=== PATIENT | female | born 1975 | race Caucasian/White ===

== ENCOUNTER 2016-08-17 15:08 | Outpatient (CLI) | payer OTHER | END 2016-08-17 15:09 | disposition home or self-care (01) | DX: G47.33 Obstructive sleep apnea (adult) (pediatric) (principal) ==

== ENCOUNTER 2016-09-08 07:47 | Outpatient (CLI) | payer OTHER | END 2016-09-08 07:48 | disposition home or self-care (01) | DX: Z00.00 Encounter for general adult medical examination without abnormal findings (principal); E78.5 Hyperlipidemia, unspecified; E66.01 Morbid (severe) obesity due to excess calories ==

== ENCOUNTER 2017-06-29 11:45 | Outpatient (CLI) | payer OTHER | END 2017-06-29 11:46 | disposition home or self-care (01) | LOC: LAB.WCP 11:45 | PROVIDERS: ATTEND Family Medicine | DX: E66.01 Morbid (severe) obesity due to excess calories (principal); N92.0 Excessive and frequent menstruation with regular cycle; R20.0 Anesthesia of skin | CPT/HCPCS: 36415; 82306; 82670; 83001; 83735; 84403 ==

== ENCOUNTER 2018-05-21 10:44 | Day surgery (SDC) | payer OTHER ==
[2018-05-21] MEDS ORDERED: ceFAZolin 2 GM/50 ML 2 GM/50 ML BAG IV ONE (10:52)
[2018-05-21] MEDS ORDERED: LACTATED RINGERS 1,000 ML IV ONE (11:13)
--- NOTE | 2018-05-21 12:10 | ANESTHESIA ---
Pre-Anesthesia VS, & Labs - Diagnosis two left forearm masses - Procedure excision of left forearm mass X2 Vital Signs: Temp Pulse Resp BP Pulse Ox 36.2 C L 78 18 108/70 99 05/21/18 10:54 05/21/18 10:54 05/21/18 10:54 05/21/18 10:54 05/21/18 10:54 Height 5 ft 4 in Weight (kg) 136 kg - NPO >8 hours - Is Patient ?: Waiver signed Home Medications and Allergies Home Medications: Ambulatory Orders Acyclovir 400 mg PO DAILY 05/20/18 Albuterol Sulfate [Proair Hfa Inhaler] 1 - 2 puffs INH Q4H PRN 05/20/18 Bupropion HCl [Bupropion Xl] 300 mg PO DAILY 05/20/18 Fluticasone [Flonase] 2 sprays LOU BID 05/20/18 Topiramate 100 mg PO DAILY PM 05/20/18 Omeprazole [PriLOSEC] 20 mg PO DAILY 05/09/13 Escitalopram [Lexapro] 20 mg PO DAILY 06/30/15 Acyclovir 400 mg PO DAILY 05/20/18 Albuterol Sulfate [Proair Hfa Inhaler] 1 - 2 puffs INH Q4H PRN 05/20/18 Bupropion HCl [Bupropion Xl] 300 mg PO DAILY 05/20/18 Fluticasone [Flonase] 2 sprays LOU BID 05/20/18 Topiramate 100 mg PO DAILY PM 05/20/18 Allergies/Adverse Reactions: Allergies Allergy/AdvReac Type Severity Reaction Status Date / Time pertussis vaccine,fluid AdvReac Unknown Rash Verified 05/20/18 13:42 Anes History & Medical History - Anesthetic History Anesthesia Complications: reports: No previous complications Family history of Anesthesia Complications: Denies Family history of Malignant Hyperthermia: Denies - Medical History Cardiovascular: reports: None Pulmonary: reports: Sleep apnea, CPAP use Gastrointestinal: reports: GERD (Controlled with med) Urinary: reports: None Neuro: reports: None Musculoskeletal: reports: None Endocrine/Autoimmune: reports: None, Other (Morbid obesity) Blood Disorders: reports: None Skin: reports: None Smoking Status: Never smoker Psychosocial: reports: Depression, Anxiety, Cannabis (Daily use) - Surgical History General: Cholecystectomy, Appendectomy, Colonoscopy Exam General: Alert, Oriented x3, Cooperative, No acute distress Dental: WNL Mouth Openin Fingerbreadth Neck Mobility: Normal Mallampati classification: II Thyromental Distance: 4-6 cm Respiratory: Lungs clear, Normal breath sounds, No respiratory distress, No accessory muscle use Cardiovascular: Regular rate, Normal S1, Normal S2, No murmurs Mental/Cognitive Status: Alert/Oriented X3, Normal for patient Cognitive Status: Within normal limits Plan Anesthesia Type: General Consent for Procedure(s) Verified and Reviewed: Yes Code Status: Attempt Resuscitation ASA classification: 3-Severe systemic disease Is this case an emergency?: No
[2018-05-21] MEDS ORDERED: LIDOCAINE-MPF 1% 30 ML VIAL ONE (13:01)
[2018-05-21] MEDS ORDERED: LIDOCAINE 1% 50 ML MDV SUBQ ONE ×2 (13:34)
[2018-05-21] MEDS ORDERED: HYDROcod/ACETAM 5/325 MG TABLET PO PRN (13:54)
[2018-05-21] MEDS ORDERED: ONDANSETRON 4 MG/2 ML VIAL IVP ONE (13:55)
[2018-05-21] MEDS ORDERED: PROPOFOL 200 MG/20 ML VIAL IVP ONE (13:55)
[2018-05-21] MEDS ORDERED: KETOROLAC 30 MG/ML VIAL IVP ONE (13:55)
[2018-05-21] MEDS ORDERED: LIDOCAINE-MPF 2% 5 ML VIAL IM ONE (13:55)
[2018-05-21] MEDS ORDERED: HYDROcod/ACETAM 5/325 MG TABLET ONE (14:36)
[2018-05-21 15:42] VITALS: BP 106/47
--- NOTE | 2018-05-21 16:16 | OPERATIVE REPORT ---
DATE OF SERVICE: 05/21/2018 Physician: Madeline Daniels MD PREOPERATIVE DIAGNOSIS: Two subcutaneous masses of left forearm. POSTOPERATIVE DIAGNOSIS: Two subcutaneous masses of left forearm. PROCEDURE PERFORMED: Excision of forearm masses, left. SURGEON: Madeline Daniels MD ANESTHESIA: General, Dr. Emmanuel. INDICATIONS FOR SURGERY: Patient is a 42-year-old female with chronic masses involving the subcutane ous area of her left forearm, one more proximal and larger than the more distal one. These are sligh tly tender and she desires that they be excised. She is of the belief that the proximal mass is enla rging in size. DESCRIPTION OF OPERATIVE PROCEDURE: The patient was taken to the operating room and was given a gene ral anesthetic, tourniquet was placed on her upper left arm and her forearm and hand were sterilely p repped and draped in standard fashion. Both lesions were approached through longitudinal incisions o f less than 2 cm in length and the underlying lipoma was dissected free from surrounding fatty tissue s. They were extrafascial and not adherent and easily removed. There was minimal bleeding. The alana sure was with 4-0 Vicryl subcuticular and 4-0 Monocryl subcuticular. Sterile dressings were applied. The patient was taken to recovery room in stable condition. ESTIMATED BLOOD LOSS: Minimal. COMPLICATIONS: None. COUNTS: Sponge and needle counts were correct. TD: 05/21/2018 14:36
== END 2018-05-21 10:45 | disposition home or self-care (01) ==
LOC: SDS 10:44
PROVIDERS: ATTEND Orthopaedic Surgery
PROC: 0JBH0ZZ Excision of Left Lower Arm Subcutaneous Tissue and Fascia, Open Approach (ICD-10-PCS; 2018-05-21)
PROC: 0JBH0ZZ Excision of Left Lower Arm Subcutaneous Tissue and Fascia, Open Approach (ICD-10-PCS; principal; 2018-05-21 12:00)
DX: D17.22 Benign lipomatous neoplasm of skin and subcutaneous tissue of left arm (principal)
CPT/HCPCS: 25071; 25075; A9270; J0690; J7120

== ENCOUNTER 2018-05-29 17:57 | Outpatient (CLI) | payer OTHER ==
--- NOTE | 2018-05-30 09:41 | Ultrasound Report ---
Reason: MENORRHAGIA Procedure Date: 05/29/2018 Accession Number: [id number] / [id number] Procedure: US - Pelvic w/Transvaginal CPT Code: FULL RESULT: EXAM: PELVIC ULTRASOUND EXAM DATE: 05/29/2018 06:41 PM. CLINICAL HISTORY: Menorrhagia. COMPARISON: None. TECHNIQUE: Realtime transabdominal pelvic scan performed to identify the uterus and adnexa and as an overview of other pelvic structures, followed by transvaginal scan to provide greater detail of the uterus and adnexa, with static image documentation. FINDINGS: Uterus: 9.9 x 4.0 x 3.9 cm, volume 80 cc. Anteverted position. Normal overall size and echotexture. Masses: None. Endometrium: 15 mm. Borderline thickened and slightly heterogeneous in appearance although no discrete mass or abnormal vascularity is delineated. Cervix: Multiple small nabothian cysts are seen. Right Ovary: 4.4 x 3.6 x 3.3 cm, volume 24.2 cc. Normal echotexture. Left Ovary: 3.2 x 2.8 x 2.2 cm, volume 10.3 cc. Normal echotexture. Free Fluid: None. Other: None. IMPRESSION: 1. Borderline thickened heterogeneous endometrial lining measuring up to 15 mm without definitive evidence for underlying lesion or mass. Management considerations could include short-term follow-up ultrasound or sonohysterogram for further evaluation. 2. Normal uterus and ovaries otherwise. RADIA
== END 2018-05-29 17:58 | disposition home or self-care (01) ==
LOC: DI 17:57
PROVIDERS: ATTEND Family Medicine
DX: N92.0 Excessive and frequent menstruation with regular cycle (principal)
CPT/HCPCS: 76830; 76856

== ENCOUNTER 2018-09-06 | Outpatient (CLI) | payer OTHER | END 2018-09-06 00:01 | disposition critical access hospital (66) | LOC: EMS | PROVIDERS: ATTEND Surgery | DX: R07.9 Chest pain, unspecified (principal); R10.10 Upper abdominal pain, unspecified; R11.2 Nausea with vomiting, unspecified | CPT/HCPCS: A0425; A0427 ==

== ENCOUNTER 2018-09-06 00:26 | Emergency (ER) | payer OTHER ==
--- NOTE | 2018-09-06 00:46 | ED Physician Documentation ---
PD HPI NVD - Stated complaint Stated Complaint: UPPER ABD PAIN - Chief complaint Chief Complaint: Abd Pain - History obtained from History obtained from: Patient - History of Present Illness Timing - onset: How many minutes ago (only about 40 minutes ago, had onset of nausea and vomiting, with epigastric pain. No headache. [place] okay earlier in the day.), Today Timing - duration: Minutes (40) Timing - details: Abrupt onset, Still present Associated symptoms: Abdominal pain, Chest pain (epigastric to substernal). No: Fever, Dizzy, Near syncope / syncope Contributing factors: Bad food (she had sushi from [employer] about an hour prior to onset of symptoms. She thinks it is that as cuase of symptoms.). No: Sick contact, Travel, Recent antibiotics, Alcohol use Improved by: No: Eating, Vomiting Worsened by: Eating Similar symptoms before: Has not had sx before Recently seen: Not recently seen Review of Systems Constitutional: denies: Fever Nose: denies: Rhinorrhea / runny nose, Congestion Throat: denies: Sore throat Cardiac: reports: Chest pain / pressure. denies: Palpitations, Pedal edema, Calf pain Respiratory: denies: Dyspnea, Cough, Hemoptysis, Wheezing GI: reports: Abdominal Pain, Nausea, Vomiting. denies: Diarrhea : denies: Dysuria, Frequency Skin: denies: Rash, Lesions Neurologic: reports: Generalized weakness. denies: Focal weakness, Numbness, Confused, Altered mental status PD PAST MEDICAL HISTORY - Past Medical History Past Medical History: Yes Cardiovascular: None Respiratory: Sleep apnea, CPAP use Neuro: None, Migraines Endocrine/Autoimmune: None, Other GI: GERD : None HEENT: None Psych: Depression, Anxiety Musculoskeletal: None Derm: None - Past Surgical History Past Surgical History: Yes General: Cholecystectomy, Appendectomy, Colonoscopy - Present Medications Home Medications: Ambulatory Orders Medication Instructions Recorded Confirmed Omeprazole [PriLOSEC] 20 mg PO DAILY 05/09/13 05/21/18 Escitalopram [Lexapro] 20 mg PO DAILY 06/30/15 05/21/18 Albuterol Sulfate [Proair Hfa 1 - 2 puffs INH Q4H PRN 05/20/18 05/21/18 Inhaler] Bupropion HCl [Bupropion Xl] 300 mg PO DAILY 05/20/18 05/21/18 Fluticasone [Flonase] 2 sprays LOU BID 05/20/18 05/21/18 Topiramate 100 mg PO DAILY PM 05/20/18 05/21/18 Ondansetron Odt [Zofran] 4 mg TL Q6H PRN #10 tablet 09/06/18 - Allergies Allergies/Adverse Reactions: Allergies Allergy/AdvReac Type Severity Reaction Status Date / Time pertussis vaccine,fluid AdvReac Unknown Rash Verified 09/06/18 00:32 - Social History Does the pt smoke?: No Smoking Status: Never smoker Does the pt drink ETOH?: Yes Does the pt have substance abuse?: No Substance Use and Type: Marijuana - Immunizations Immunizations are current?: Yes - POLST Patient has POLST: No PD ED PE NORMAL - Vitals Vital signs reviewed: Yes - General General: Alert and oriented X 3, Well developed/nourished, Other (appears uncomfortable due to nausea and upper abd pain. ) - HEENT HEENT: Pharynx benign - Neck Neck: Supple, no meningeal sign, No adenopathy - Cardiac Cardiac: RRR, No murmur - Respiratory Respiratory: Clear bilaterally - Abdomen Abdomen: Normal bowel sounds, Soft, Non distended, No organomegaly, Other (tender epigastric without percussion nor rebound tenderness. LUQ also tender with local guarding only. Lower abd not tender. ) - Female Female : Deferred - Rectal Rectal: Deferred - Derm Derm: Normal color, Warm and dry - Extremities Extremities: No tenderness to palpate, Normal ROM s pain, No edema, No calf tenderness / cord - Neuro Neuro: Alert and oriented X 3, No motor deficit, Normal speech Eye Opening: Spontaneous Motor: Obeys Commands Verbal: Oriented GCS Score: 15 Results - Vitals Vitals: Vital Signs - 24 hr 09/06/18 09/06/18 09/06/18 00:28 01:10 02:45 Temperature 36.2 C L 36.0 C L Heart Rate 72 91 84 Respiratory 22 16 28 H Rate Blood Pressure 135/71 H 136/82 H 121/69 O2 Saturation 100 100 100 Oxygen O2 Source Room air - EKG (time done) 01:04 Rate: Rate (enter#) (80) Rhythm: NSR [place]: Normal Intervals: Normal ID QRS: Normal Ischemia: Normal ST segments. No: ST elevation c/w ischemia, ST depression - Labs Labs: Laboratory Tests 09/06/18 09/06/18 09/06/18 01:05 01:05 01:05 WBC 12.8 H RBC 4.57 Hgb 13.4 Hct 39.8 MCV 87.1 MCH 29.2 MCHC 33.6 RDW 14.3 Plt Count 341 MPV 7.3 L Neut # (Auto) 10.5 H Lymph # (Auto) 1.6 [place] # (Auto) 0.5 Eos # (Auto) 0.1 Baso # (Auto) 0.0 Absolute Nucleated RBC 0.00 Nucleated RBC % 0.0 Sodium 138 Potassium 3.6 Chloride 107 Carbon Dioxide 23 Anion Gap 8.0 BUN 19 Creatinine 1.0 Estimated GFR (MDRD) 61 L Glucose 114 H Calcium 9.0 Total Bilirubin 0.9 AST 99 H ALT 47 Alkaline Phosphatase 66 Troponin I < 0.04 Total Protein 7.2 Albumin 3.8 Globulin 3.4 Albumin/Globulin Ratio 1.1 Lipase 41 - Rads (name of study) chest xray Radiology: Prelim report reviewed, EMP read contemporaneously, See rad report (no acute process) PD MEDICAL DECISION MAKING - ED course Complexity details: re-evaluated patient (improved with IV fluids and meds. ), considered differential (seems likely food poisoning nor viral GE, with nausea and upper abd pain/tender, but has pain to chest as well, so eval for atypical MN. ), d/w patient Departure - Departure Disposition: 01 Home, Self Care Clinical Impression: Acute epigastric pain Vomiting Qualifiers: Vomiting type: unspecified Vomiting Intractability: non-intractable Nausea presence: with nausea Qualified Code(s): R11.2 - Nausea with vomiting, unspecified Condition: Stable Record reviewed to determine appropriate education?: Yes Instructions: ED Food Poison Or Gastroenteritis Follow-Up: Eris Powell DO [Primary Care Provider] - Prescriptions: Ondansetron Odt [Zofran] 4 mg TL Q6H PRN #10 tablet PRN Reason: Nausea / Vomiting Comments: Use ondansetron if needed for nausea. Tylenol or even pain medicine if needed for pain. I presume this is going to be just 1 day type illness. Either from the food you ate or viral illness. Small frequent fluids and bland food initially. Progress as able. Recheck if not improved over the next day or so and return if worse again. Discharge Date/Time: 09/06/18 02:58
[2018-09-06] MEDS ORDERED: SODIUM CHLORIDE 0.9% 1,000 ML IV ONE (00:54)
[2018-09-06] MEDS ORDERED: MORPHINE 10 MG/ML VIAL IVP STA (00:54)
[2018-09-06] MEDS ORDERED: ONDANSETRON 4 MG/2 ML VIAL IVP STA (00:54)
[2018-09-06] MEDS ORDERED: KETOROLAC 15 MG/ML VIAL IVP STA (00:55)
[2018-09-06] MEDS ORDERED: MAG HYDROX/AL HYDROX/SIMETH 30 ML UDC PO STA (00:55)
[2018-09-06 01:11] LABS: BASOPHILS % (AUTO) 0.4 %; EOSINOPHILS # (AUTO) 0.1 10^3/uL (0.0-0.7); EOSINOPHILS % (AUTO) 0.8 %; HGB - HEMOGLOBIN 13.4 g/dL (12.0-16.0); LYMPHOCYTES # (AUTO) 1.6 10^3/uL (1.5-3.5); LYMPHOCYTES % (AUTO) 12.6 %; MEAN CORPUSCULAR HEMOGLOBIN 29.2 pg (27.0-31.0); MEAN CORPUSCULAR HGB CONC 33.6 g/dL (32.0-36.0); MEAN CORPUSCULAR VOLUME 87.1 fL (81.0-99.0); MEAN PLATELET VOLUME 7.3 fL (7.9-10.8); MONOCYTES # (AUTO) 0.5 10^3/uL (0.0-1.0); MONOCYTES % (AUTO) 4.2 %; NEUTROPHILS # (AUTO) 10.5 10^3/uL (1.5-6.6); PLT - PLATELET COUNT 341 10^3/uL (130-450); RED BLOOD COUNT 4.57 10^6/uL (4.20-5.40); RED CELL DISTRIBUTION WIDTH 14.3 % (12.0-15.0); WHITE BLOOD COUNT 12.8 x10^3/uL (4.8-10.8)
[2018-09-06 01:22] LABS: ALBUMIN 3.8 g/dL (3.2-5.5); ALBUMIN/GLOBULIN RATIO 1.1 (1.0-2.2); BILIRUBIN,TOTAL 0.9 mg/dL (0.2-1.0); TOTAL PROTEIN 7.2 g/dL (6.7-8.2)
--- NOTE | 2018-09-06 01:43 | XRAY Report ---
Reason: chest pain/epigastric pain Procedure Date: 09/06/2018 Accession Number: [id number] / [id number] Procedure: XR - Chest 1 View X-Ray CPT Code: 93876 FULL RESULT: EXAM: CHEST RADIOGRAPHY EXAM DATE: 09/06/2018 01:30 AM. CLINICAL HISTORY: Chest pain/epigastric pain. COMPARISON: 06/30/2015 8:15 PM. TECHNIQUE: 1 view. FINDINGS: Lungs/Pleura: No focal opacities evident. No pleural effusion. No pneumothorax. Mediastinum: Within exam limitations, the cardiomediastinal contour is normal. Other: None. IMPRESSION: Normal single view chest. RADIA
[2018-09-06] MEDS ORDERED: ONDANSETRON ODT 4 MG Prepack 2 TL PRN (02:40)
[2018-09-06] MEDS ORDERED: HYDROcod/ACET 5/325 Prepack 4 PO STA (02:40)
[2018-09-06 02:46] VITALS: BP 121/69
== END 2018-09-06 02:58 | disposition home or self-care (01) ==
LOC: EDUNIT# → ED 00:26
DX: R10.13 Epigastric pain (principal); R11.2 Nausea with vomiting, unspecified; R94.31 Abnormal electrocardiogram [ECG] [EKG]
CPT/HCPCS: 36415; 71045; 80053; 83690; 84484; 85025; 93005; 96361; 96374; 96375; 99283; 99284; A9270

== ENCOUNTER 2018-09-25 09:55 | Outpatient (CLI) | payer OTHER ==
[2018-09-25 12:48] LABS: BASOPHILS % (AUTO) 0.4 %; EOSINOPHILS # (AUTO) 0.1 10^3/uL (0.0-0.7); EOSINOPHILS % (AUTO) 1.3 %; LYMPHOCYTES # (AUTO) 1.9 10^3/uL (1.5-3.5); LYMPHOCYTES % (AUTO) 28.4 %; MEAN CORPUSCULAR VOLUME 87.9 fL (81.0-99.0); MEAN PLATELET VOLUME 7.8 fL (7.9-10.8); MONOCYTES # (AUTO) 0.5 10^3/uL (0.0-1.0); NEUTROPHILS # (AUTO) 4.2 10^3/uL (1.5-6.6); NEUTROPHILS % (AUTO) 62.9 %; PLT - PLATELET COUNT 448 10^3/uL (130-450); RED BLOOD COUNT 4.49 10^6/uL (4.20-5.40); RED CELL DISTRIBUTION WIDTH 15.1 % (12.0-15.0); WHITE BLOOD COUNT 6.7 x10^3/uL (4.8-10.8)
[2018-09-25 13:13] LABS: ALBUMIN 3.8 g/dL (3.2-5.5); ALBUMIN/GLOBULIN RATIO 1.2 (1.0-2.2); CALCIUM 9.3 mg/dL (8.5-10.3); CREATININE 0.6 mg/dL (0.4-1.0)
== END 2018-09-25 09:56 | disposition home or self-care (01) ==
LOC: LAB.WCP 09:55
PROVIDERS: ATTEND Family Medicine
DX: K80.50 Calculus of bile duct without cholangitis or cholecystitis without obstruction (principal)
CPT/HCPCS: 36415; 80053; 85025

== ENCOUNTER 2019-06-16 08:31 | Outpatient (CLI) | payer OTHER ==
[2019-06-16 10:36] VITALS: BP 120/72
--- NOTE | 2019-06-16 10:36 | SLEEP CARE CONSULTATION ---
Information from patient questionnaire entered by Ghislaine Rivera. I have reviewed and concur with the information entered by Ghislaine Rivera. This document represents the service I personally performed and the decisions made by me, Safia Marquez, RN, MSN, [employer]. History of Present Illness Previous diagnosis: Extremely Severe, Obstructive Sleep Apnea-Hypopnea Syndrome AHI: 102.4 Reason for follow up: annual (last seen 2017) Equipment type: CPAP Equipment obtained from: [facility] Mask style: Full face Mask brand: Respironics Backup mask available: No (keep current mask when replaced. ) Last cushion change: 1 month ago but seems too large as was ex's HPI additional information: Her insurance will change to [employer] and now has [employer]. Needs a supplier who takes both insurances. CPAP Compliance Data - Data Reviewed with Patient Average duration of nightly device use: 7.95 Compliance rate %: 100 (180 days) Current pressure setting (cmH2O): 12 Average residual AHI: 0.7 Average large leak: 15 min 7 sec Subjective Patient concerns: reports: aerophagia (started with weight loss), mask discomfort (nasal bridge soreness ), air blowing in eyes (nightly), mask leak noise, nasal congestion, dry mouth, nose, throat (nightly and forgets to put water in reservoir. ), epistaxis (weekly ) Observed to snore while using device: No (sleeps alone) Current pressure setting perceived as: too high On therapy, patient: reports: sleeping better, awakening more refreshed, being more awake and alert during the day, more rested overall. denies: drowsiness while driving Initial [place] Sleepiness Scale score: 15 Current [place] Sleepiness Scale score: 6 Allergies and Home Medications Known drug allergies: No (pertussis vacine) Home medication list reviewed: Yes Allergy and home medication list: topiramate 100mg daily po Zofran 4mg as needed omeprazole 20mg daily Lexapro 20mg daily Bupropion XL 3oomg daily Albuterol inhaler as needed Flonase as needed. Another antidepressant and a med for cold sores. Review of Systems Review of systems same as previous: Yes (Emergency room / hospitalization for gall stones. ) Physical Exam Blood Pressure: 120/72 Cuff size: long Heart Rate: 77 O2 Saturation: 98 Height: 5 ft 4 in Weight: 304 lb Weight change since last visit: lost 38 pounds Body Mass Index: 52.2 BMI Classification: Obesity Class 3 Nasal exam: positive: erythema Impression and Plan 1. Obstructive Sleep Apnea-Hypopnea Syndrome, extremely severe, with good treatment compliance and excellent apnea control. On CPAP therapy, the patient has better sleep quality and is more rested overall. For her aerophagia, I will reduce her CPAP pressure and change it to a autoCPAP range to [id number] to accommodate for further weight loss. She is advised to contact me if pressure change uncomfortable. For her mask concerns, I showed her some sample masks. I fitted her with an Eladia View until she can transfer and obtain supplies from another DME. Current DME does not take her insurance and she will be transferring again. Since her device is over 5 years old and of reasonable I will also update her CPAP. I will have my lab coordinator inform her of DME options. A better fitting mask should reduce mask leaks and escape of any humidity and reduce oral and nasal dryness. She is also advised to fill reservoir daily. I also gave her some Rah Ease nasal cream to use 4 times a day for 7-10 days and then as needed. To reduce mask bowden on her face, she is counseled to overtighten mask and discussed fitting. I also gave her information on Pad A cheek strap covers that may reduce mask bowden with padded strap covers. Patient's apnea severity and rationale for treatment to reduce apnea, improve sleep quality and reduce cardiovascular and cerebrovascular events was reviewed. I also reviewed the benefit of consistent device use of CPAP for gastric reflux, depression/anxiety, migraines. * * Change CPAP pressure to 6-10 cmH2O * Try Eladia View - medium cushion * Rah Ease nasal cream * transfer to new DME * Update CPAP * Try Pad A Cheek * Notify me if snoring with mask or feeling that the pressure is too much or too little * Attempt to lose weight * Return for follow up in 5 weeks after new CPAP , or sooner if concerns arise I spent 100% of this 45 minute visit face to face with the patient with greater than 50% of this was spent time counseling the patient and coordination of care.
== END 2019-06-16 08:32 | disposition home or self-care (01) ==
LOC: SC 08:31
PROVIDERS: ATTEND Nurse Practitioner Family
DX: G47.33 Obstructive sleep apnea (adult) (pediatric) (principal)
CPT/HCPCS: 99212; 99215

== ENCOUNTER 2020-02-06 13:09 | Outpatient (CLI) | payer BC ==
--- NOTE | 2020-02-06 14:51 | Ultrasound Report ---
PROCEDURE: Duplex Ext Veins Left INDICATIONS: LEFT CALF PX TECHNIQUE: Real-time imaging, as well as color and pulse Doppler interrogation, were performed of the lower extr emity deep veins from the inguinal ligament to the popliteal fossa. COMPARISON: None. FINDINGS: Examination limited by body habitus. Left peroneal vein is not well seen. The deep veins are otherwise normally compressible, and free of intraluminal thrombus. Color and pulse Doppler demonstrate normal phasic intraluminal flow. There i s normal augmentation response to distal compression maneuver. IMPRESSION: 1. Nonvisualization of the left peroneal vein. 2. Otherwise, no evidence of left lower extremity DVT. Reviewed by: Kristen Cagle MD on 02/06/2020 2:49 PM PDT Approved by: Kristen Cagle MD on 02/06/2020 2:49 PM PDT Station ID: [id number]
== END 2020-02-06 13:10 | disposition home or self-care (01) ==
LOC: DI 13:09
PROVIDERS: ATTEND Emergency Medicine
DX: M79.662 Pain in left lower leg (principal)

== ENCOUNTER 2020-02-17 08:00 | Outpatient (CLI) | payer BC ==
[2020-02-17 12:03] LABS: BASOPHILS # (AUTO) 0.1 10^3/uL (0.0-0.1); BASOPHILS % (AUTO) 0.6 %; EOSINOPHILS # (AUTO) 0.2 10^3/uL (0.0-0.7); EOSINOPHILS % (AUTO) 2.6 %; HGB - HEMOGLOBIN 12.3 g/dL (12.0-16.0); LYMPHOCYTES # (AUTO) 2.3 10^3/uL (1.5-3.5); LYMPHOCYTES % (AUTO) 28.3 %; MEAN CORPUSCULAR HEMOGLOBIN 28.6 pg (27.0-31.0); MEAN CORPUSCULAR HGB CONC 30.9 g/dL (32.0-36.0); MEAN CORPUSCULAR VOLUME 92.6 fL (81.0-99.0); MEAN PLATELET VOLUME 9.4 fL (7.9-10.8); MONOCYTES # (AUTO) 0.4 10^3/uL (0.0-1.0); MONOCYTES % (AUTO) 5.2 %; NEUTROPHILS # (AUTO) 5.1 10^3/uL (1.5-6.6); NEUTROPHILS % (AUTO) 62.3 %; PLT - PLATELET COUNT 378 10^3/uL (130-450); RED CELL DISTRIBUTION WIDTH 13.8 % (12.0-15.0); WHITE BLOOD COUNT 8.2 x10^3/uL (4.8-10.8)
[2020-02-17 12:33] LABS: ALBUMIN 3.9 g/dL (3.2-5.5); ALBUMIN/GLOBULIN RATIO 1.1 (1.0-2.2); ALKALINE PHOSPHATASE 56 IU/L (42-121); ALT ALANINE AMINOTRANSFERASE 23 IU/L (10-60); AST ASPARTATE AMINOTRANSFERASE 21 IU/L (10-42); BILIRUBIN,TOTAL 0.2 mg/dL (0.2-1.0); BUN - BLOOD UREA NITROGEN 17 mg/dL (6-20); CALCIUM 9.1 mg/dL (8.5-10.3); CARBON DIOXIDE - CO2 24 mmol/L (21-32); CHLORIDE 105 mmol/L (101-111); CHOL/HDL RATIO 5.5 (<4.4); CHOLESTEROL 238 mg/dL; CREATININE 0.9 mg/dL (0.4-1.0); GLUCOSE 112 mg/dL (70-100); HDL CHOLESTEROL 43 mg/dL; LDL CHOLESTEROL,CALCULATED 147 mg/dL; LDL/HDL RATIO 3.4 (<4.4); SODIUM 138 mmol/L (135-145); TOTAL PROTEIN 7.4 g/dL (6.7-8.2); VLDL CHOLESTEROL 48 mg/dL
== END 2020-02-17 23:59 | disposition home or self-care (01) ==
LOC: LAB.WCP 08:00
PROVIDERS: ATTEND Family Medicine
DX: R60.9 Edema, unspecified (principal); E78.5 Hyperlipidemia, unspecified; F32.9 Major depressive disorder, single episode, unspecified; K21.9 Gastro-esophageal reflux disease without esophagitis; G43.909 Migraine, unspecified, not intractable, without status migrainosus
CPT/HCPCS: 36415; 80053; 80061; 83721; 84443; 85025

== ENCOUNTER 2020-03-17 16:36 | Outpatient (CLI) | payer BC ==
[2020-03-17 18:56] LABS: BASOPHILS # (AUTO) 0.1 10^3/uL (0.0-0.1); BASOPHILS % (AUTO) 0.5 %; EOSINOPHILS # (AUTO) 0.2 10^3/uL (0.0-0.7); EOSINOPHILS % (AUTO) 2.1 %; HGB - HEMOGLOBIN 12.8 g/dL (12.0-16.0); LYMPHOCYTES # (AUTO) 2.7 10^3/uL (1.5-3.5); LYMPHOCYTES % (AUTO) 25.6 %; MEAN CORPUSCULAR HEMOGLOBIN 28.9 pg (27.0-31.0); MEAN CORPUSCULAR HGB CONC 31.8 g/dL (32.0-36.0); MEAN PLATELET VOLUME 9.4 fL (7.9-10.8); MONOCYTES # (AUTO) 0.6 10^3/uL (0.0-1.0); MONOCYTES % (AUTO) 5.6 %; NEUTROPHILS # (AUTO) 6.8 10^3/uL (1.5-6.6); NEUTROPHILS % (AUTO) 65.5 %; PLT - PLATELET COUNT 345 10^3/uL (130-450); RED BLOOD COUNT 4.43 10^6/uL (4.20-5.40); RED CELL DISTRIBUTION WIDTH 14.2 % (12.0-15.0); WHITE BLOOD COUNT 10.4 x10^3/uL (4.8-10.8)
[2020-03-17 19:03] LABS: ALBUMIN 3.7 g/dL (3.2-5.5); ALBUMIN/GLOBULIN RATIO 1.1 (1.0-2.2); BILIRUBIN,TOTAL 0.3 mg/dL (0.2-1.0); CALCIUM 9.4 mg/dL (8.5-10.3); CREATININE 0.9 mg/dL (0.4-1.0); TOTAL PROTEIN 7.2 g/dL (6.7-8.2)
== END 2020-03-17 23:59 | disposition home or self-care (01) ==
LOC: LAB.WCP 16:36
PROVIDERS: ATTEND Nurse Practitioner Family
DX: R10.9 Unspecified abdominal pain (principal)
CPT/HCPCS: 36415; 80053; 85025; 87086

== ENCOUNTER 2020-04-07 16:34 | Outpatient (CLI) | payer BC ==
--- NOTE | 2020-04-07 16:55 | SLEEP CARE CONSULTATION ---
Information from patient questionnaire entered by Ghislaine Rivera. I have reviewed and concur with the information entered by Ghislaine Rivera. This document represents the service I personally performed and the decisions made by , Nell Serrano ARNP. History of Present Illness Service Date and Time: 04/07/2020 1634 Previous diagnosis: Extremely Severe, Obstructive Sleep Apnea-Hypopnea Syndrome AHI: 104.6 (in 2013) Reason for follow up: other (9 month, CPAP not working) Equipment type: CPAP Equipment obtained from: [facility] (new to patient, has not gotten supplies from them yet) Mask style: Full face Backup mask available: No Last cushion change: 2 months Prior sleep studies: Yes Year and Where: 2012 - [facility] Type of Sleep Study: Polysomnography HPI additional information: MARY ANN JULES was diagnosed to have extremely severe, AHI 104.6, obstructive sleep apnea-hypopnea syndrome and returned today for CPAP therapy 9 month follow-up with her CPAP not functioning. Her machine stopped working last night and she states that she can't sleep without it. CPAP Compliance Data - Data Reviewed with Patient Average duration of nightly device use: 9.4 Compliance rate %: 99.4 (180 days) Current pressure setting (cmH2O): 6-10 Humidity settin Average residual AHI: 2.2 Average large leak: 11 min 7 sec Subjective Patient concerns: reports: other (broken machine). denies: aerophagia, mask discomfort, air blowing in eyes, mask leak noise, condensation in mask/hose, nasal congestion, dry mouth, nose, throat, epistaxis Observed to snore while using device: No Current pressure setting perceived as: comfortable On therapy, patient: reports: sleeping better, awakening more refreshed, being more awake and alert during the day, more rested overall. denies: drowsiness while driving Initial [place] Sleepiness Scale score: 15 (in 2013) Current [place] Sleepiness Scale score: 12 Allergies and Home Medications Drug allergies reviewed: Yes (pertussis vaccine) Home medication list reviewed: Yes (no changes) Review of Systems Review of systems same as previous: Yes (no changes) Physical Exam Heart Rate: 87 O2 Saturation: 98 Height: 5 ft 4 in Weight: 331 lb Body Mass Index: 56.8 BMI Classification: Morbidly Obese Impression and Plan 1. Obstructive Sleep Apnea-Hypopnea Syndrome, extremely severe, with good treatment compliance and good apnea control. On CPAP therapy, the patient has better sleep quality and is more rested overall. Her CPAP machine stopped working last night and she is unable to sleep without her CPAP because of severity of her LUCITA. She was eligible for a new machine at her last appointment but did not end up getting a new machine. She is still eligible and a prescription to update machine was written and marked urgent to try and speed process of getting new machine. She will follow up one month after obtaining new machine for a recheck on the new machine. Patient's apnea severity and rationale for treatment to reduce apnea, improve sleep quality and reduce cardiovascular and cerebrovascular events was reviewed. I also reviewed the benefit of consistent device use of CPAP for gastric reflux, depression/anxiety, and migraines. * Continue auto CPAP pressure at 6-10 cmH2O * Update machine due to current one malfunctioning (not working) * Notify me if snoring with mask or feeling that the pressure is too much or too little * Attempt to lose weight * Call this office if any problems using CPAP * Return for follow up in 1 month , or sooner if concerns arise Visit Type: In Office Time Spent with Patient (minutes): 15 Provider Statement: I spent 100% of the Face to Face Visit with the patient with greater than 50% spent counseling the patient and coordination of care.
== END 2020-04-07 16:35 | disposition home or self-care (01) ==
LOC: SC 16:34
PROVIDERS: ATTEND Nurse Practitioner Family
DX: G47.33 Obstructive sleep apnea (adult) (pediatric) (principal); E66.01 Morbid (severe) obesity due to excess calories; Z68.43 Body mass index [BMI] 50.0-59.9, adult
CPT/HCPCS: 99212; 99213

== ENCOUNTER 2020-04-22 15:09 | Outpatient (CLI) | payer BC ==
--- NOTE | 2020-04-22 16:43 | CT Report ---
PROCEDURE: Abdomen/Pelvis WO INDICATIONS: FLANK PAIN TECHNIQUE: Noncontrast 5 mm thick sections acquired from the diaphragms to the symphysis. 5 mm coronal and sagi ttal reformats were then performed. For radiation dose reduction, the following was used: automated exposure control, adjustment of mA and/or kV according to patient size. COMPARISON: None. FINDINGS: Image quality: Excellent. ABDOMEN: Lung bases: Lung bases are clear. Heart size is normal. Solid organs: Liver and spleen are normal in size. Gallbladder is surgically absent Pancreas is no rmal in contours. No adrenal nodules. Kidneys are normal in size, without hydronephrosis or nephrol ithiasis. Peritoneum and bowel: Unenhanced bowel loops demonstrate normal wall thickness and caliber. The appe ndix is not visualized and surgical clips are present at the cecum suggesting prior appendectomy. The re are scattered diverticular outpouchings throughout the sigmoid colon. No mucosal thickening or fat stranding to suggest acute diverticulitis. No free fluid or air. Nodes and vessels: No retroperitoneal or mesenteric adenopathy by size criteria. Aorta and inferior vena cava are normal in caliber. Miscellaneous: There is a small fat-containing umbilical hernia. PELVIS: Genitourinary: Bladder wall thickness is normal. The uterus and the right ovary have a normal appea el. There is a low density cystic lesion within the left ovary which measures approximately 3.6 cm in diameter. Miscellaneous: No inguinal hernias or adenopathy. Bones: No suspicious bony lesions. No vertebral body compression fractures. IMPRESSION: 1. No acute intra-abdominal findings. Diverticulosis. No acute diverticulitis. 2. No nephrolithiasis, hydronephrosis, hydroureter, or ureterolithiasis. 3. Questionable left ovarian cyst. If further characterization is warranted, pelvic ultrasound could be used. It is unclear whether this may be the etiology of the patient's pain. Reviewed by: Ivory Waldrop MD on 04/22/2020 4:42 PM PDT Approved by: Ivory Waldrop MD on 04/22/2020 4:42 PM PDT Station ID: [id number]
== END 2020-04-22 15:10 | disposition home or self-care (01) ==
LOC: DI 15:09
PROVIDERS: ATTEND Nurse Practitioner Family
DX: R10.9 Unspecified abdominal pain (principal); K57.30 Diverticulosis of large intestine without perforation or abscess without bleeding
CPT/HCPCS: 74176

== ENCOUNTER 2020-05-11 16:49 | Outpatient (CLI) | payer BC ==
--- NOTE | 2020-05-12 12:52 | Ultrasound Report ---
PROCEDURE: Pelvic w/Transvaginal INDICATIONS: MENORRHAGIA TECHNIQUE: Real-time scanning was performed of the pelvic organs, with image documentation. Additional endovagi nal scanning was necessary due to incomplete visualization of the adnexal and endometrial structures by transabdominal scanning. COMPARISON: Ultrasound pelvis 05/29/2018, 06/23/2013. CT abdomen pelvis 04/22/2020 FINDINGS: Transabdominal scanning: Limited scanning through the kidneys shows no hydronephrosis. No pathologi c free abdominal or pelvic fluid. Endovaginal scanning: Uterus: Uterus is normal in size at 9.3 x 3.5 x 3.6 cm. The endometrium measures 0.8 cm in combined thickness. Numerous small clustered nabothian cysts are redemonstrated within the cervix which appea rs enlarged. There are septations demonstrated between the cystic components which demonstrate event planning intern al vascularity. These appear progressively increased compared to the prior studies. Ovaries: The right ovary measures 2.6 x 1.7 x 2.2 cm and the left ovary measures 3.9 x 2.4 x 3.8 cm. There is a small cyst in the left ovary measuring up to 1.5 cm likely representing a prominent folli brennon. IMPRESSION: 1. Numerous clustered cysts in the cervix appear progressively increased compared to the prior studie s. The cervix also appears enlarged. Although the findings likely represent nabothian cysts, the diff erential includes adenoma malignum. Consider correlation with direct visualization. 2. Small simple left ovarian cyst likely representing a follicular cyst. Reviewed by: Yeyo Luis MD on 05/12/2020 11:50 AM KIRAN Approved by: Yeyo Luis MD on 05/12/2020 11:50 AM AKJODI Station ID: [id number]
== END 2020-05-11 16:50 | disposition home or self-care (01) ==
LOC: DI 16:49
PROVIDERS: ATTEND Family Medicine
DX: N92.0 Excessive and frequent menstruation with regular cycle (principal); N88.8 Other specified noninflammatory disorders of cervix uteri; N83.202 Unspecified ovarian cyst, left side
CPT/HCPCS: 76830; 76856

== ENCOUNTER 2020-05-24 09:15 | Outpatient (CLI) | payer BC ==
--- NOTE | 2020-05-24 12:25 | XRAY Report ---
PROCEDURE: Knee 2 View LT INDICATIONS: ARTHRITIS, LEFT KNEE TECHNIQUE: 2 views of the left knee(s) were acquired. COMPARISON: None. FINDINGS: Bones: No fractures or dislocations. No suspicious bony lesions. Moderate to severe medial and pat ellofemoral compartment narrowing with periarticular osteophytes. Mild lateral compartment narrowing is present. No erosions. Soft tissues: Mild joint effusion. No suspicious soft tissue calcifications. IMPRESSION: Tricompartmental narrowing as above most severe in the medial patellofemoral compartment suggestive osteoarthritis. Reviewed by: Italia Abraham MD on 05/24/2020 12:24 PM PDT Approved by: Italia Abraham MD on 05/24/2020 12:24 PM PDT Station ID: [id number]
== END 2020-05-24 09:16 | disposition home or self-care (01) ==
LOC: DI 09:15
PROVIDERS: ATTEND Family Medicine
DX: M17.12 Unilateral primary osteoarthritis, left knee (principal)

== ENCOUNTER 2020-06-24 08:28 | Outpatient (CLI) | payer BC ==
--- NOTE | 2020-06-24 08:15 | SLEEP CARE CONSULTATION ---
Information from patient questionnaire entered by Ghislaine Rivera. I have reviewed and concur with the information entered by Ghislaine Rivera. This document represents the service I personally performed and the decisions made by me, Nell Serrano ARNP. History of Present Illness Service Date and Time: 06/24/2020 0800 Previous diagnosis: Extremely Severe, Obstructive Sleep Apnea-Hypopnea Syndrome AHI: 104.6 (in 2013) Reason for follow up: first compliance after device update Equipment type: CPAP Equipment obtained from: [facility] (getting supplies as needed) Mask style: Full face Backup mask available: Yes (old mask) Last cushion change: 3 weeks Prior sleep studies: Yes Year and Where: 2013 - [facility] Sleep HPI additional information: MARY ANN JULES was diagnosed to have extremely severe, AHI 104.6, obstructive sleep apnea-hypopnea syndrome and returns via Telehealth visit today for CPAP therapy first compliance after device follow-up. CPAP Compliance Data - Data Reviewed with Patient Average duration of nightly device use: 8 hours 41 minutes Compliance rate %: 100 Current pressure setting (cmH2O): 6-10 Humidity settin Heated hose settin Average residual AHI: 2.6 Average large leak: 3 min 50 sec Subjective Patient concerns: reports: aerophagia (slight, doesn't bother her, doesn't want to change pressure). denies: mask discomfort, air blowing in eyes, mask leak noise, condensation in mask/hose, nasal congestion, dry mouth, nose, throat, epistaxis, other Observed to snore while using device: No Current pressure setting perceived as: comfortable On therapy, patient: reports: sleeping better, awakening more refreshed, being more awake and alert during the day, more rested overall. denies: drowsiness while driving Initial [place] Sleepiness Scale score: 15 (in 2013) Current [place] Sleepiness Scale score: 3 Allergies and Home Medications Drug allergies reviewed: Yes (pertussis vaccine) Home medication list reviewed: Yes (no changes) Review of Systems Review of systems same as previous: Yes (no changes) Physical Exam Height: 5 ft 4 in Impression and Plan 1. Obstructive Sleep Apnea-Hypopnea Syndrome, extremely severe, with excellent treatment compliance and good apnea control. On CPAP therapy, the patient has better sleep quality and is more rested overall. She states she does get a little air in her stomach in the mornings from being a mouth breather. She is happy with the pressure setting and does not want to change it at this time. She was encouraged to call if the aerophagia worsens or becomes painful or if pressure feels too much. She voiced understanding and agreement with care. Patient's apnea severity and rationale for treatment to reduce apnea, improve sleep quality and reduce cardiovascular and cerebrovascular events was reviewed. I also reviewed the benefit of consistent device use of CPAP for gastric reflux, depression/anxiety, and migraines. * Continue auto CPAP pressure at 6-10 cmH2O * Notify me if snoring with mask or feeling that the pressure is too much or too little * Call this office if any problems using CPAP * Return for follow up in 1 year, or sooner if concerns arise Counseling Topics: Spare mask Visit Type: Telehealth Phone Patient Location: Car Location of Provider: Office Patient agrees and consents to this telehealth visit type: Yes Patient agrees to have their insurance billed: Yes Time Spent with Patient (minutes): 10 Provider Statement: I spent 100% of the Telehealth Phone Call with the patient with greater than 50% spent counseling the patient and coordination of care.
== END 2020-06-24 08:29 | disposition home or self-care (01) ==
LOC: SC 08:28
PROVIDERS: ATTEND Nurse Practitioner Family
DX: G47.33 Obstructive sleep apnea (adult) (pediatric) (principal)

== ENCOUNTER 2021-06-21 10:11 | Outpatient (CLI) | payer BC ==
[2021-06-21 18:22] LABS: BASOPHILS % (AUTO) 0.4 %; EOSINOPHILS # (AUTO) 0.2 10^3/uL (0.0-0.7); EOSINOPHILS % (AUTO) 1.6 %; HCT - HEMATOCRIT 42.1 % (37.0-47.0); HGB - HEMOGLOBIN 13.2 g/dL (12.0-16.0); LYMPHOCYTES # (AUTO) 2.3 10^3/uL (1.5-3.5); LYMPHOCYTES % (AUTO) 21.3 %; MEAN CORPUSCULAR HEMOGLOBIN 28.3 pg (27.0-31.0); MEAN CORPUSCULAR HGB CONC 31.4 g/dL (32.0-36.0); MEAN CORPUSCULAR VOLUME 90.1 fL (81.0-99.0); MEAN PLATELET VOLUME 9.9 fL (7.9-10.8); MONOCYTES # (AUTO) 0.5 10^3/uL (0.0-1.0); MONOCYTES % (AUTO) 4.5 %; NEUTROPHILS # (AUTO) 7.8 10^3/uL (1.5-6.6); NEUTROPHILS % (AUTO) 71.8 %; PLT - PLATELET COUNT 366 10^3/uL (130-450); RED BLOOD COUNT 4.67 10^6/uL (4.20-5.40); RED CELL DISTRIBUTION WIDTH 13.8 % (12.0-15.0); WHITE BLOOD COUNT 10.9 x10^3/uL (4.8-10.8)
[2021-06-21 18:57] LABS: ALBUMIN 3.8 g/dL (3.2-5.5); ALBUMIN/GLOBULIN RATIO 1.2 (1.0-2.2); ALKALINE PHOSPHATASE 55 IU/L (42-121); ALT ALANINE AMINOTRANSFERASE 28 IU/L (10-60); AST ASPARTATE AMINOTRANSFERASE 22 IU/L (10-42); BILIRUBIN,TOTAL 0.6 mg/dL (0.2-1.0); BUN - BLOOD UREA NITROGEN 11 mg/dL (6-20); CARBON DIOXIDE - CO2 24 mmol/L (21-32); CHLORIDE 104 mmol/L (101-111); CHOL/HDL RATIO 4.4 (<4.4); CHOLESTEROL 231 mg/dL; CREATININE 0.7 mg/dL (0.4-1.0); GFR - MDRD 90 (>89); GLUCOSE 87 mg/dL (70-100); HDL CHOLESTEROL 53 mg/dL; LDL CHOLESTEROL,CALCULATED 152 mg/dL; LDL/HDL RATIO 2.9 (<4.4); POTASSIUM 4.2 mmol/L (3.5-5.0); SODIUM 137 mmol/L (135-145); TOTAL PROTEIN 7.1 g/dL (6.7-8.2); TRIGLYCERIDES 132 mg/dL; VLDL CHOLESTEROL 26 mg/dL
[2021-06-21 21:34] LABS: ESTIMATED AVERAGE GLUCOSE 103 mg/dL (70-100); HEMOGLOBIN A1c% 5.2 % (4.27-6.07)
== END 2021-06-21 23:59 | disposition home or self-care (01) ==
LOC: LAB.WCP 10:11
PROVIDERS: ATTEND Family Medicine
DX: Z00.00 Encounter for general adult medical examination without abnormal findings (principal); E78.5 Hyperlipidemia, unspecified; E66.01 Morbid (severe) obesity due to excess calories
CPT/HCPCS: 36415; 80053; 80061; 83036; 83721; 85025

== ENCOUNTER 2021-12-12 13:48 | Outpatient (CLI) | payer BC ==
[2021-12-12 17:51] LABS: BASOPHILS % (AUTO) 0.4 %; EOSINOPHILS # (AUTO) 0.1 10^3/uL (0.0-0.7); EOSINOPHILS % (AUTO) 1.4 %; HCT - HEMATOCRIT 44.7 % (37.0-47.0); HGB - HEMOGLOBIN 14.1 g/dL (12.0-16.0); LYMPHOCYTES # (AUTO) 2.8 10^3/uL (1.5-3.5); LYMPHOCYTES % (AUTO) 30.1 %; MEAN CORPUSCULAR HEMOGLOBIN 28.5 pg (27.0-31.0); MEAN CORPUSCULAR HGB CONC 31.5 g/dL (32.0-36.0); MEAN CORPUSCULAR VOLUME 90.3 fL (81.0-99.0); MEAN PLATELET VOLUME 10.1 fL (7.9-10.8); MONOCYTES # (AUTO) 0.5 10^3/uL (0.0-1.0); MONOCYTES % (AUTO) 5.8 %; NEUTROPHILS # (AUTO) 5.7 10^3/uL (1.5-6.6); NEUTROPHILS % (AUTO) 61.9 %; PLT - PLATELET COUNT 359 10^3/uL (130-450); RED BLOOD COUNT 4.95 10^6/uL (4.20-5.40); WHITE BLOOD COUNT 9.3 x10^3/uL (4.8-10.8)
[2021-12-12 18:22] LABS: ALBUMIN 4.4 g/dL (3.2-5.5); ALBUMIN/GLOBULIN RATIO 1.2 (1.0-2.2); ALKALINE PHOSPHATASE 57 IU/L (42-121); ALT ALANINE AMINOTRANSFERASE 36 IU/L (10-60); AST ASPARTATE AMINOTRANSFERASE 24 IU/L (10-42); BILIRUBIN,TOTAL 0.7 mg/dL (0.2-1.0); BUN - BLOOD UREA NITROGEN 16 mg/dL (6-20); CALCIUM 9.6 mg/dL (8.5-10.3); CARBON DIOXIDE - CO2 25 mmol/L (21-32); CHLORIDE 104 mmol/L (101-111); CHOL/HDL RATIO 4.7 (<4.4); CHOLESTEROL 261 mg/dL; CREATININE 0.9 mg/dL (0.4-1.0); GFR - MDRD 67 (>89); GLUCOSE 109 mg/dL (70-100); HDL CHOLESTEROL 55 mg/dL; LDL CHOLESTEROL,CALCULATED 164 mg/dL; SODIUM 138 mmol/L (135-145); TRIGLYCERIDES 212 mg/dL; VLDL CHOLESTEROL 42 mg/dL
[2021-12-12 18:28] LABS: THYROID STIMULATING HORMONE 1.93 uIU/mL (0.34-5.60)
[2021-12-12 20:19] LABS: ESTIMATED AVERAGE GLUCOSE 103 mg/dL (70-100); HEMOGLOBIN A1c% 5.2 % (4.27-6.07)
[2021-12-13 10:55] LABS: HCV AB 0.3 s/co ratio (0.0-0.9); HIV SCREEN 4TH GENERATION Non Reactive (Non Reactive); RPR Non Reactive (Non Reactive)
== END 2021-12-12 13:49 | disposition home or self-care (01) ==
LOC: LAB.N 13:48
PROVIDERS: ATTEND Nurse Practitioner Family
DX: E66.01 Morbid (severe) obesity due to excess calories (principal); R03.0 Elevated blood-pressure reading, without diagnosis of hypertension; Z11.3 Encounter for screening for infections with a predominantly sexual mode of transmission
CPT/HCPCS: 36415; 80053; 80061; 83036; 83721; 84443; 85025; 86592; 86803; 87389; 87491; 87591; 87661

== ENCOUNTER 2022-09-26 08:25 | Outpatient (CLI) | payer OTHER ==
[2022-09-26 09:20] VITALS: BP 118/72
--- NOTE | 2022-09-26 09:20 | SLEEP CARE CONSULTATION ---
Information from patient questionnaire entered by Joyce Ingram. I have reviewed and concur with the information entered by Joyce Ingram. This document represents the service I personally performed and the decisions made by me, Nell Serrano ARNP. History of Present Illness Service Date and Time: 09/26/2022 0825 Previous diagnosis: Extremely Severe, Obstructive Sleep Apnea-Hypopnea Syndrome AHI: 104.6 (in 2012) Reason for follow up: annual (06/2020 LAST SEEN ) Equipment type: CPAP (PATRICK) Equipment obtained from: Other ([facility]) Mask style: Full face (Hybrid) Backup mask available: Yes (possibly, different style) Last cushion change: 2 months Prior sleep studies: Yes Year and Where: 2012 - [facility] Sleep HPI additional information: MARY ANN JULES was diagnosed to have extremely severe, AHI 104.6, obstructive sleep apnea-hypopnea syndrome and returned today for CPAP therapy annual follow- up. Sleep Study - Results Prior sleep studies: Yes Year and Where: 2012 - [facility] CPAP Compliance Data - Data Reviewed with Patient Average duration of nightly device use: 8 HRS 16 MIN 36SEC Compliance rate %: 98.9 (03/28/22-09/23/22; 179/180 days used) Current pressure setting (cmH2O): 6-10 Average residual AHI: 3.3 Central apnea: 0.1 Obstructive apnea: 0.7 Hypopnea: 2.5 Subjective Patient concerns: reports: other (headaches, wake up with migraines history - couple times a month). denies: aerophagia, mask discomfort, air blowing in eyes, mask leak noise, condensation in mask/hose, nasal congestion, dry mouth, nose, throat, epistaxis Observed to snore while using device: No Current pressure setting perceived as: comfortable On therapy, patient: reports: sleeping better, awakening more refreshed, being more awake and alert during the day, more rested overall. denies: drowsiness while driving Initial [place] Sleepiness Scale score: 15 (in 2012) Current [place] Sleepiness Scale score: 3 (09/26/22) Allergies and Home Medications Drug allergies reviewed: Yes (same as listed in EMR) Home medication list reviewed: Yes (Turmeric, vit C, D, magnesium, cranberry) Review of Systems Review of systems same as previous: Yes (no changes) Physical Exam Vital signs obtained and entered by: JOYCE Armando MA Blood Pressure: 118/72 (LEFT ARM) Cuff size: regular Heart Rate: 92 O2 Saturation: 97 Height: 5 ft 4 in Weight: 320 lb 6.4 oz Body Mass Index: 55.0 BMI Classification: Morbidly Obese Impression and Plan 1. Obstructive Sleep Apnea-Hypopnea Syndrome, extremely severe, with good treatment compliance and good apnea control. On CPAP therapy, the patient has better sleep quality and is more rested overall. Patient states she is waking up more often at night and sometimes not able to get back to sleep quickly. She states over the last year she had a separation and then her mother . So, she has had some stressors which interrupted her sleep. But she feels her depression is better controlled and she has reduced/stopped her depression medication but she continues to have these wake ups at night. She states she will lay in bed 45 minutes or so just thinking but not necessarily with racing thoughts or worries. I discussed with her leaving the bed if she is not able to go to sleep within 15 to 20 minutes and doing something quiet until feeling sleepy enough to go back to sleep. This will help to reduce associating negative feelings when laying in bed. She voiced understanding and agreement with this plan. Patient has significant improvement of their sleep apnea and is satisfied with current CPAP therapy. Patient states she cannot sleep without using her CPAP and has not yet received a replacement for her [employer] device. I checked the [employer] website patient portal and her device number did not come up as registered with them. I encouraged her to call and register her machine and gave her the phone number to call. She states she will call this number today. Patient denies problems with oral dryness, nasal congestion, epistaxis, skin irritation or aerophagia. Patient's apnea severity and rationale for treatment to reduce apnea, improve sleep quality and reduce cardiovascular and cereb rovascular events was reviewed. I also reviewed the benefit of consistent device use of CPAP for gastric reflux, depression, anxiety and migraines. 2. Obesity, unspecified. Currently patients BMI is 55.0. Obesity increases the risk of apnea, CPAP pressure requirements and overall health risks especially cardiovascular and diabetes. Thus patient is advised to lose weight. * Continue auto CPAP pressure at 6-10 cmH2O * Update supplies * Notify me if snoring with mask or feeling that the pressure is too much or too little * Attempt to lose weight * Call this office if any problems using CPAP * Return for follow up in 1 year, or sooner if concerns arise Counseling Topics: Spare mask, Weight loss health impact Visit Type: In Office Time Spent with Patient (minutes): 25 Provider Statement: I spent 100% of the Face to Face Visit with the patient with greater than 50% spent counseling the patient and coordination of care.
== END 2022-09-26 08:26 | disposition home or self-care (01) ==
LOC: SC 08:25
PROVIDERS: ATTEND Nurse Practitioner Family
DX: G47.33 Obstructive sleep apnea (adult) (pediatric) (principal); E66.01 Morbid (severe) obesity due to excess calories; Z68.43 Body mass index [BMI] 50.0-59.9, adult
CPT/HCPCS: 99212; 99213

== ENCOUNTER 2024-04-03 14:23 | Outpatient (CLI) | payer OTHER ==
--- NOTE | 2024-04-03 15:48 | Sleep Patient Instructions ---
Sleep Center Visit Summary - Patient Visit Information Reason for Visit: Annual follow-up for PAP therapy - Patient Instructions Additional Instructions: You will continue with CPAP therapy with pressure set at 6-10 cmH2O. A supply prescription will be updated with your DME supplier. We encourage you to continue to try to lose weight. Please follow up with the sleep care office in 1 year. - Clinic Information Contact: [facility] [address] [place] [address] [email or web address] T: [phone]
--- NOTE | 2024-04-03 15:54 | SLEEP CARE CONSULTATION ---
Information from patient questionnaire entered by Harsha Haile. I have reviewed and concur with the information entered by Harsha Haile. This document represents the service I personally performed and the decisions made by , Nell Serrano ARNP. History of Present Illness Service Date and Time: 04/03/2024 1423 Previous diagnosis: Extremely Severe, Obstructive Sleep Apnea-Hypopnea Syndrome AHI: 104.6 (in 2012) Reason for follow up: annual (Last seen 09/2022) Equipment type: CPAP (PATRICK Dreamstation, recertified) Equipment obtained from: Other ([facility]; getting supplies) Mask style: Full face Backup mask available: No Last cushion change: last week Prior sleep studies: Yes Year and Where: 2012 - [facility] Type of Sleep Study: Polysomnography HPI additional information: MARY ANN JULES was diagnosed to have extremely severe, AHI 104.6, obstructive sleep apnea-hypopnea syndrome and returned today for CPAP therapy annual follow- up. Sleep Study - Results Type of Sleep Study: Polysomnography Prior sleep studies: Yes Year and Where: 2012 - [facility] CPAP Compliance Data - Data Reviewed with Patient Average duration of nightly device use: 8 h 18 min Compliance rate %: 100 (180/180 days used) Current pressure setting (cmH2O): 6 - 10 Humidity setting: Off Heated hose setting: Off Average residual AHI: 2.9 (RERA - 3.2) Central apnea: 0.2 Obstructive apnea: 0.5 Hypopnea: 2.2 Average large leak: 2 mins 12 secs Subjective Patient concerns: reports: aerophagia, mask discomfort, air blowing in eyes. denies: mask leak noise, condensation in mask/hose, nasal congestion, dry mouth, nose, throat, epistaxis Observed to snore while using device: Yes Current pressure setting perceived as: comfortable On therapy, patient: reports: sleeping better, awakening more refreshed, being more awake and alert during the day, more rested overall. denies: drowsiness while driving Initial [place] Sleepiness Scale score: 15 (in 2012) Current [place] Sleepiness Scale score: 3 (04/03/24) Allergies and Home Medications Known drug allergies: Yes (as listed) Drug allergies reviewed: Yes Home medication list reviewed: Yes (estrogen, progesterone, meloxicam) Allergy and home medication list: Allergies pertussis vaccine,fluid Adverse Reaction Rash Home Medications Medication Instructions Recorded Confirmed Last Taken Type Ascorbic Acid [Vitamin C] See Rx Instructions .ROUTE .COMPLEX 09/26/22 04/03/24 Unknown History Cholecalciferol [Vitamin D3] See Rx Instructions .ROUTE .COMPLEX 09/26/22 04/03/24 Unknown History Cranberry Fruit Extract [Cranberry] See Rx Instructions .ROUTE .COMPLEX 09/26/22 04/03/24 Unknown History Magnesium See Rx Instructions .ROUTE .COMPLEX 09/26/22 04/03/24 Unknown History Melatonin See Rx Instructions .ROUTE .COMPLEX 09/26/22 04/03/24 Unknown History Turmeric/Turmeric Root Extract See Rx Instructions .ROUTE .COMPLEX 09/26/22 04/03/24 Unknown History [Turmeric 500 mg Capsule] Meloxicam See Rx Instructions .ROUTE .COMPLEX 04/03/24 04/03/24 Unknown History Review of Systems Review of systems same as previous: Yes (no changes) Physical Exam Vital signs obtained and entered by: Nell Newby NP Blood Pressure: 122/83 Cuff size: long (left arm) Heart Rate: 78 O2 Saturation: 99 Height: 5 ft 4 in Weight: 292 lb 6.4 oz Weight change since last visit: 28 lb loss Body Mass Index: 50.1 BMI Classification: Morbidly Obese Impression and Plan 1. Obstructive Sleep Apnea-Hypopnea Syndrome, extremely severe, with good treatment compliance and good apnea control. On CPAP therapy, the patient has better sleep quality and is more rested overall. She has significant improvement of her sleep apnea and is satisfied with current CPAP therapy. She states her DME sent her the wrong mask but she never called them to correct the error. She wants to go back to the other mask or another mask that does not go under her nose. She would like a fullface mask refitting which I will add to her prescription for supplies today. She otherwise feels the pressure is adequate and comfortable. Patient's apnea severity and rationale for treatment to reduce apnea, improve sleep quality and reduce cardiovascular and cerebrovascular events was reviewed. I also reviewed the benefit of consistent device use of CPAP for gastric reflux, depression/anxiety, migraines. 2. Obesity, unspecified. Currently patients BMI is 50.1. She has lost weight. Obesity increases the risk of apnea, CPAP pressure requirements and overall health risks especially cardiovascular and diabetes. Thus patient is advised to continue to try to lose weight. * Continue auto CPAP pressure at 6-10 cmH2O * Mask refitting for full face mask * Update supply prescription * Notify me if snoring with mask or feeling that the pressure is too much or too little * Attempt to lose weight * Call this office if any problems using CPAP * Return for follow up in 12 months, or sooner if concerns arise Counseling Topics: Spare mask, Weight loss health impact Prescriptions: Device supplies Follow up with Sleep Care in: 1 year Visit Type: In Office Time Spent with Patient (minutes): 22 Provider Statement: I spent 100% of the Face to Face Visit with the patient with greater than 50% spent counseling the patient and coordination of care.
[2024-04-03 15:57] VITALS: BP 122/83; O2SAT 99
== END 2024-04-03 14:24 | disposition home or self-care (01) ==
LOC: SC 14:23
PROVIDERS: ATTEND Nurse Practitioner Family
DX: G47.33 Obstructive sleep apnea (adult) (pediatric) (principal); E66.01 Morbid (severe) obesity due to excess calories; Z68.43 Body mass index [BMI] 50.0-59.9, adult
CPT/HCPCS: 99212; 99213